=== PATIENT | female | born 1965 | race Two or more races ===

== ENCOUNTER 2025-03-12 11:49 | Outpatient (CLI) | payer BC ==
[2025-03-12 12:18] LABS: MEAN PLATELET VOLUME 7.9 FL (7.4-10.4); RED CELL DISTRIBUTION WIDTH 13.6 % (11.5-14.5)
[2025-03-12 12:42] LABS: CHOL/HDL RATIO 3.5 (0.00-4.99); CREATININE 1.00 MG/DL (0.40-0.90); LDL CHOLESTEROL 115 MG/DL (50-100); TOTAL CARBON DIOXIDE 29.1 MMOL/L (24-32); eGFR 57 ML/MIN
== END 2025-03-12 23:59 | disposition home or self-care (01) ==
LOC: RAD 11:49
PROVIDERS: ATTEND Student in an Organized Health Care Education/Training Program
DX: R73.03 Prediabetes (principal); R53.83 Other fatigue; Z13.220 Encounter for screening for lipoid disorders; Z13.29 Encounter for screening for other suspected endocrine disorder
CPT/HCPCS: 36415; 80053; 80061; 83036; 84443; 85025